=== PATIENT | female | born 1970 | race Hispanic/Latino ===

== ENCOUNTER 2019-02-04 11:50 | Emergency (ER) | payer OTHER ==
[2019-02-04] MEDS: Diphtheria/Tetanus Toxoids,Adult (Td) 0.5 ML SDV IM ONE (11:58)
[2019-02-04] MEDS: Diphtheria,Pertussis(Acell),Tetanus Vaccine 0.5 ML SDV inactive IM ONE (11:58)
[2019-02-04] MEDS ORDERED: Lidocaine 1% 10 ML MDV ONE (12:00)
--- NOTE | 2019-02-04 14:12 | EDM.PDOC ---
ED HPI GENERAL MEDICAL PROBLEM - General Stated Complaint: LACERATION TO LEFT LEG Time Seen by Provider: 02/04/19 11:50 Source of Information: Reports: Patient History Limitations: Reports: No Limitations - History of Present Illness INITIAL COMMENTS - FREE TEXT/NARRATIVE: According to patient she was at work and she was cutting a thick plastic tube. While cutting the plastic pipe the knife slipped over and hit her left lower thigh. She sustained a laceration over the left lower thigh. The wound has been bleeding. No difficulty with walking. No weakness in the extremity. Pt is from [place], and she is not sure of her last tetanus injection. No other complaints. Onset: Today Onset Date: 02/04/19 Onset Time: 11:00 Location: Reports: Lower Extremity, Left Quality: Reports: Ache Severity: Mild Associated Symptoms: Denies: Confusion, Chest Pain, Cough, Diaphoresis, Fever/ Chills, Headaches, Nausea/Vomiting, Rash, Seizure, Shortness of Breath, Syncope , Weakness ED ROS GENERAL - Review of Systems Review Of Systems: See Below Constitutional: Denies: Fever, Chills HEENT: Denies: Ear Pain, Rhinitis, Throat Pain Respiratory: Denies: Shortness of Breath, Pleuritic Chest Pain, Cough, Sputum Cardiovascular: Denies: Chest Pain, Lightheadedness Endocrine: Denies: Fatigue GI/Abdominal: Denies: Abdominal Pain, Nausea, Vomiting : Denies: Dysuria, Frequency Musculoskeletal: Denies: Joint Pain, Joint Swelling Skin: Reports: Wound. Denies: Bruising, Pruritis, Rash ED EXAM, GENERAL - Physical Exam Exam: See Below Exam Limited By: No Limitations General Appearance: Alert, WD/WN, No Apparent Distress Eye Exam: Bilateral Eye: EOMI, PERRL Ears: Normal External Exam, Normal Canal, Hearing Grossly Normal, Normal TMs Ear Exam: Bilateral Ear: Auricle Normal, Canal Normal, TM normal Nose: Normal Inspection, Normal Mucosa, No Blood Throat/Mouth: Normal Inspection, Normal Lips, Normal Teeth, Normal Gums, Normal Oropharynx, Normal Voice, No Airway Compromise Head: Atraumatic, Normocephalic Neck: Normal Inspection, Supple, Non-Tender, Full Range of Motion Respiratory/Chest: No Respiratory Distress, Lungs Clear, Normal Breath Sounds, No Accessory Muscle Use, Chest Non-Tender Cardiovascular: Normal Peripheral Pulses, Regular Rate, Rhythm, No Edema, No Gallop, No JVD, No Murmur, No Rub Neurological: Alert, Oriented Skin Exam: Warm, Intact, Other (There is 3 cms, curvilinear laceration over the medail aspect of the lower thihg. There is exposure of the subcutaneous layer. Wound is gaping. Minimal tenderness around the wound.) ED GENERAL MEDICAL PROCEDURES - Laceration/Wound Repair Left Thigh Lac/wound length in cm: 3 Appearance: Linear Distal NVT: Neuro & Vascular Intact Anesthetic Type: Local Local Anesthesia - Lidocaine (Xylocaine): 1% with EPI Local Anesthetic Volume: 2cc Skin Prep: Providone-Iodine (Betadine) Saline irrigation (cc's): 10 Closed with: Sutures Suture Size: 4-0 # of Sutures: 5 Suture Type: Interrupted, Other (ethilon) Sterile Dressing Applied: Provider Tetanus Status Addressed: Yes Complications: No Course - Vital Signs Text/Narrative:: There is a simple gapping laceration over the left lower thigh. After consent was obtained the wound was closed under aseptic precautions. Simple dressing done. Wound care discussed with patient. She did receive tetanus shot today. Advised to keep the wound clean and dry. Followup in the clinic in 7 days for suture removal. Departure - Departure Time of Disposition: 12:30 Disposition: Home, Self-Care 01 Condition: Good Clinical Impression: Laceration of thigh - Discharge Information *PRESCRIPTION DRUG MONITORING PROGRAM REVIEWED*: Not Applicable *COPY OF PRESCRIPTION DRUG MONITORING REPORT IN PATIENT SUSAN: Not Applicable Instructions: Wound Infection, [id number] Additional Instructions: - Do daily dressing and apply antibiotic ointment. - Keep wound dry for 2 days, no swimming or bath to avoid wetting the wound. - Suture removal on February 11 at the clinic. - Watch for signs of infection such as: redness of wound, drainage from wound, increasing pain and fever. Call provider or come to the clinic for further treatment.treatment - Problem List & Annotations (1) Laceration of thigh SNOMED Code(s): 762688791 Code(s): S71.119A - LACERATION WITHOUT FOREIGN BODY, UNSP THIGH, INIT ENCNTR Status: Acute - Problem List Review Problem List Initiated/Reviewed/Updated: Yes - Assessment/Plan Assessment:: Laceration of the left thigh 3 cm long Plan: There is a simple gapping laceration over the left lower thigh. After consent was obtained the wound was closed under aseptic precautions. Simple dressing done. Wound care discussed with patient. She did receive tetanus shot today. Advised to keep the wound clean and dry. Followup in the clinic in 7 days for suture removal.
== END 2019-02-04 12:22 | disposition home or self-care (01) ==
LOC: LB.ED 11:50
DX: S71.112A Laceration without foreign body, left thigh, initial encounter (principal); W26.0XXA Contact with knife, initial encounter; Y99.0 Civilian activity done for income or pay; Z23 Encounter for immunization
CPT/HCPCS: 12002; 90471; 90714; 99282; J2001